=== PATIENT | male | born 1950 | race Caucasian/White ===

== ENCOUNTER → 2019-03-30 | Outpatient (CLI) | payer OTHER | LOC: FIMAGING 15:15 ==

== ENCOUNTER 2019-03-31 07:08 | Inpatient (IN) | payer OTHER, MEDICAID | END 2019-04-01 09:55 | disposition home or self-care (01) | LOC: F2N 12:29 ==

== ENCOUNTER → 2019-04-05 | Outpatient (CLI) | payer OTHER, MEDICAID | LOC: FIMAGING 09:58 ==

== ENCOUNTER → 2019-04-15 | Outpatient (CLI) | payer OTHER, MEDICAID | LOC: FIMAGING 08:47 ==